=== PATIENT | female | born 1960 | race Caucasian/White ===

== ENCOUNTER 2020-09-04 22:40 | Inpatient (IN) | payer OTHER ==
[2020-09-04] MEDS ORDERED: Diltiazem 125 MG/25 ML ONE (22:53)
[2020-09-04 23:11] LABS: #Basophils 0.1 10x3/uL (0.0-0.2); #Eosinphils 0.1 10x3/uL (0.0-0.5); #Neutrophils 3.9 10x3/uL (1.5-8.4); %Basophils 0.6 % (0.0-2.0); %Eosinophils 0.9 % (0.0-6.0); %Lymphocytes 35.2 % (18.0-47.0); %Monocytes 13.1 % (0.0-10.0); %Neutrophils 49.7 % (40.0-75.0); Hemoglobin 15.2 g/dL (12.0-15.5); Mean Corpuscular Volume 93.9 fl (81.6-98.3); Mean Platelet Volume 8.8 fl (7.4-10.4); Platelet Count 242 10x3/uL (150-450); RBC Distribution Width 12.3 % (11.5-14.5); White Blood Cell (WBC) Count 7.8 10x3/uL (3.5-10.5)
[2020-09-04 23:26] LABS: ALT (SGPT) 40 U/L (8-55); AST (SGOT) 40 U/L (5-34); Albumin 4.3 g/dL (3.5-5.0); Alkaline Phosphatase 93 U/L (40-110); Anion Gap 15 mmol/L (10-20); BUN (Urea Nitrogen) 12 mg/dL (9.8-20.1); Bilirubin, Total 0.4 mg/dL (0.2-1.2); Calc. Creatinine Clearance 0 mL/min (70-130); Calcium 10.4 mg/dL (7.8-10.44); Carbon Dioxide 27 mmol/L (22-29); Chloride 103 mmol/L (98-107); Globulin 3.6 g/dL (2.4-3.5); Glucose 97 mg/dL (70-105); Potassium 4.1 mmol/L (3.5-5.1); Protein, Total 7.9 g/dL (6.0-8.3); Sodium 141 mmol/L (136-145)
[2020-09-04] MEDS ORDERED: Aspirin Chewable 81 MG TAB ONE (23:33)
[2020-09-04 23:48] LABS: CKMB 2.9 ng/mL (0-6.6)
[2020-09-05] MEDS ORDERED: Enoxaparin Sodium 100 MG/ML SYRINGE ONE (00:11)
[2020-09-05 01:09] LABS: Troponin I 0.042 ng/mL (< 0.028)
[2020-09-05 01:59] VITALS: BMI 49.3
[2020-09-05] MEDS ORDERED: Diltiazem 125 MG in Sodium Chloride 0.9% 100 ML IVPB SCH (03:30)
[2020-09-05 05:38] LABS: #Eosinphils 0.1 10x3/uL (0.0-0.5); #Monocytes 0.8 10x3/uL (0.0-1.1); #Neutrophils 3.1 10x3/uL (1.5-8.4); %Basophils 0.4 % (0.0-2.0); %Eosinophils 1.1 % (0.0-6.0); %Lymphocytes 42.7 % (18.0-47.0); %Monocytes 11.3 % (0.0-10.0); %Neutrophils 44.2 % (40.0-75.0); Hemoglobin 14.2 g/dL (12.0-15.5); Mean Corpuscular HGB CONC 33.3 g/dL (32.0-36.0); Mean Corpuscular Hemoglobin 31.3 pg (27.0-33.0); Platelet Count 214 10x3/uL (150-450); RBC Distribution Width 12.4 % (11.5-14.5); Red Blood Cell (RBC) Count 4.53 10x6/uL (3.90-5.03); White Blood Cell (WBC) Count 7.1 10x3/uL (3.5-10.5)
[2020-09-05 05:50] LABS: Troponin I 0.048 ng/mL (< 0.028)
[2020-09-05 05:51] LABS: Anion Gap 14 mmol/L (10-20); BUN (Urea Nitrogen) 9 mg/dL (9.8-20.1); Calc. Creatinine Clearance 166 mL/min (70-130); Calcium 9.5 mg/dL (7.8-10.44); Carbon Dioxide 26 mmol/L (22-29); Chloride 105 mmol/L (98-107); Glucose 108 mg/dL (70-105); Magnesium 2.1 mg/dL (1.6-2.6); Potassium 3.8 mmol/L (3.5-5.1); Sodium 141 mmol/L (136-145)
[2020-09-05] MEDS: Multivit, Therapeutic 1 TAB PO SCH (08:47)
[2020-09-05] MEDS: Docusate 100 MG CAP PO SCH (08:47)
[2020-09-05] MEDS ORDERED: Propafenone HCl 150 MG TAB PO SCH (10:15)
[2020-09-05 11:33] LABS: SARS-CoV-2 NAA Rapid Test Not Detected (NotDetected)
[2020-09-05] MEDS ORDERED: Enoxaparin Sodium 120 MG/0.8 ML SYRINGE SC SCH (12:30)
[2020-09-05] MEDS ORDERED: Potassium Chloride 10 MEQ TAB PO SCH (21:00)
[2020-09-05] MEDS ORDERED: Ubidecarenone 50 MG CAP PO SCH (21:00)
[2020-09-05] MEDS ORDERED: Lisinopril 5 MG TAB PO SCH (21:00)
[2020-09-05] MEDS ORDERED: Furosemide 20 MG TAB PO SCH (21:00)
[2020-09-05] MEDS ORDERED: Lisinopril 10 MG TAB PO SCH (21:00)
[2020-09-05] MEDS ORDERED: PROPAFENONE 225 MG PO SCH (21:00)
[2020-09-05] MEDS ORDERED: Loratadine 10 MG TAB PO SCH (21:00)
[2020-09-05] MEDS: Apixaban 5 MG TAB PO SCH (21:18)
[2020-09-05] MEDS: Propafenone HCl 150 MG TAB PO SCH (21:19)
[2020-09-06] MEDS: Propafenone HCl 150 MG TAB PO SCH (05:31)
[2020-09-06 08:42] VITALS: BP 118/72; TEMP 98
[2020-09-06] MEDS: Multivit, Therapeutic 1 TAB PO SCH (09:48)
[2020-09-06] MEDS: Apixaban 5 MG TAB PO SCH (09:48)
[2020-09-06] MEDS: Docusate 100 MG CAP PO SCH (09:48)
== END 2020-09-06 11:44 | disposition home or self-care (01) | DRG 309 ==
LOC: CSHERS 22:40 → CSHTELE 09-05 01:14
PROVIDERS: ADMIT Family Medicine; ATTEND Internal Medicine
DX: I48.0 Paroxysmal atrial fibrillation (principal); Z68.42 Body mass index [BMI] 45.0-49.9, adult; K21.9 Gastro-esophageal reflux disease without esophagitis; Z87.42 Personal history of other diseases of the female genital tract; I10 Essential (primary) hypertension; Z88.6 Allergy status to analgesic agent; Z88.5 Allergy status to narcotic agent; Z88.8 Allergy status to other drugs, medicaments and biological substances; I25.10 Atherosclerotic heart disease of native coronary artery without angina pectoris; E78.5 Hyperlipidemia, unspecified; G47.33 Obstructive sleep apnea (adult) (pediatric); E66.9 Obesity, unspecified; I83.90 Asymptomatic varicose veins of unspecified lower extremity; Z20.822 Contact with and (suspected) exposure to COVID-19
CPT/HCPCS: 36415; 71045; 71275; 80048; 80053; 82553; 83735; 84443; 84484; 85025; 85379; 93005; 93010; 93306; 96365; 96366; 96372; 96376; J1650; U0002

== ENCOUNTER 2022-10-04 09:05 | Outpatient (CLI) | payer BC | END 2022-10-04 09:06 | disposition home or self-care (01) | LOC: CSHCP 09:05 | PROVIDERS: ATTEND Internal Medicine Critical Care Medicine | DX: R06.02 Shortness of breath (principal); J98.4 Other disorders of lung | CPT/HCPCS: 94060; 94726; 94729; 94760 ==

== ENCOUNTER 2024-03-08 08:10 | Outpatient (CLI) | payer BC | END 2024-03-08 08:11 | disposition home or self-care (01) | LOC: CSHMRI 08:10 | PROVIDERS: ATTEND Neurological Surgery | DX: M50.122 Cervical disc disorder at C5-C6 level with radiculopathy (principal); M50.123 Cervical disc disorder at C6-C7 level with radiculopathy; M25.511 Pain in right shoulder; M75.121 Complete rotator cuff tear or rupture of right shoulder, not specified as traumatic; M62.511 Muscle wasting and atrophy, not elsewhere classified, right shoulder; M94.8X1 Other specified disorders of cartilage, shoulder; M89.8X1 Other specified disorders of bone, shoulder; M66.321 Spontaneous rupture of flexor tendons, right upper arm | CPT/HCPCS: 72141 ==